=== PATIENT | male | born 1960 | race African-American/Black ===

== ENCOUNTER 2016-11-01 18:50 | Inpatient (IN) | payer MEDICAID ==
[~2016-11-01] VITALS: Ht 177.8 cm; Wt 127.3 kg
[~2016-11-01 18:50] MED LIST: ASPI81CH43 GT; FUR20T PO; LISI-646 PO; MET25T PO; POTA20TA53 PO; SPIR25TA88 PO
[2016-11-01 21:24] LABS: Basophils # (auto) 0.1 uL; Basophils % (auto) 0.7 % (0.0-2.0); Eosinophils # (auto) 0.2 uL; Eosinophils % (auto) 1.8 % (0.0-7.0); Hematocrit 45.2 % (41.0-53.0); Hemoglobin 14.1 g/dL (13.5-17.5); Lymphocytes # (auto) 0.8 uL; Lymphocytes % (auto) 8.4 % (10.0-50.0); Mean Corpuscular Hemoglobin 29.7 pg (28.0-32.0); Mean Corpuscular Hgb Conc. 31.2 g/dL (32.0-36.0); Mean Corpuscular Volume 94.9 fL (80.0-100.0); Mean Platelet Volume 8.7 fL (7.4-10.4); Monocytes # (auto) 0.6 uL; Neutrophils # (auto) 7.3 uL; Neutrophils % (auto) 82.1 % (37.0-80.0); Platelet Count (auto) 334 10^3/uL (140-450); Red Cell Distribution Width 15.3 % (11.6-16.0); SUSPECT VIEW TRANSMISSION; White Blood Cell 8.9 10^3/uL (4.4-10.8)
[2016-11-01 21:36] LABS: Albumin 3.8 g/dL (3.4-5.0); Alkaline Phosphatase 161 U/L (45-117); Anion Gap 8 (5-15); Aspartate Aminotransferase 52 U/L (15-37); BUN/Creatinine Ratio 17.9; Bilirubin, Total 2.6 mg/dL (0.2-1.0); Blood Urea Nitrogen 15 mg/dL (7-18); Calcium 9.3 mg/dL (8.5-10.1); Carbon Dioxide 30 mmol/L (21-32); Chloride 102 mmol/L (98-107); GFR African American 121 mL/min; GFR Non-African American 100 mL/min; Glucose 66 mg/dL (74-106); Sodium 140 mmol/L (136-145); Total Protein 7.9 g/dL (6.4-8.2)
[2016-11-01 21:43] LABS: Partial Thromboplastin Time 26.8 sec (22.64-33.71)
[2016-11-01 21:44] LABS: INR 1.21 (0.9-1.15); Prothrombin Time 12.5 sec (9.37-12.3)
[2016-11-01 22:03] LABS: B-Type Natriuretic Peptide 530.41 pg/mL (0-100); Temperature: 21.9 C (20.0-25.0)
[2016-11-02 00:27] LABS: Urine Blood Negative /uL (Negative); Urine Ca Oxalate Crystal MANY (None Seen); Urine Color Yellow (Yellow); Urine Glucose Normal (Normal); Urine Hyaline Cast FEW /lpf (0 - 2); Urine Ketone Negative (Negative); Urine Mucus FEW (None Seen); Urine Nitrite Negative (Negative); Urine RBC 3 /hpf (0 - 3); Urine Urobilinogen >12.0 mg/dL (Negative)
[2016-11-02 00:39] LABS: Urine Bilirubin POSITIVE (Negative)
[2016-11-02] MEDS ORDERED: FUROSEMIDE 20 MG/2 ML VIAL IV ONE ×2 (03:30→06:15)
[2016-11-02] MEDS ORDERED: ONDANSETRON HCL 4 MG/2 ML VIAL IV ONE (04:30)
[2016-11-02] MEDS ORDERED: MORPHINE SULF INJ 2 MG/ML SYRINGE 1ML IV ONE (04:30)
[2016-11-02] MEDS ORDERED: IOHEXOL 350 MG/ML 100ML IJ ONE (05:24)
[2016-11-02] MEDS ORDERED: HYDROcodone-ACET 5/325MG TAB PO PRN (06:15)
[2016-11-02] MEDS ORDERED: MORPHINE SULF INJ 2 MG/ML SYRINGE 1ML IV PRN (06:15)
[2016-11-02] MEDS ORDERED: ONDANSETRON HCL 4 MG/2 ML VIAL IV PRN (06:15)
[2016-11-02] MEDS ORDERED: ALBUTEROL SULF 2.5 MG/0.5ML(0.5%) NEB SOLN NEB PRN (06:15)
[2016-11-02] MEDS ORDERED: ENOXAPARIN SOD 100 MG/1 ML SYRINGE SC ONE (06:15)
[2016-11-02] MEDS ORDERED: ACETAMINOPHEN 325 MG TAB PO PRN (06:15)
[2016-11-02] MEDS ORDERED: NITROGLYCERIN 0.4 MG SL TAB SL PRN (06:15)
[2016-11-02 09:00] VITALS: BP 161/120
[2016-11-02 09:20] VITALS: BP 161/120
[2016-11-02 09:39] VITALS: BP 150/90
[2016-11-02] MEDS ORDERED: METOPROLOL TARTRATE 25 MG TAB PO SCH (10:00)
[2016-11-02] MEDS ORDERED: ENOXAPARIN SOD 100 MG/1 ML SYRINGE SC SCH (10:00)
[2016-11-02] MEDS: SPIRONOLACTONE 25 MG TAB PO SCH (10:05)
[2016-11-02] MEDS: POTASSIUM CHL 10 Meq TABLET PO SCH ×2 (10:05→21:12)
[2016-11-02] MEDS: ASPirin 81 mg TAB PO SCH (10:05)
[2016-11-02] MEDS: FAMOTIDINE 20 MG TAB PO SCH ×2 (10:06→21:12)
[2016-11-02] MEDS: LISINOPRIL 10 MG TAB PO SCH (10:15)
[2016-11-02 13:03] VITALS: BP 135/110
[2016-11-02] MEDS: IPRATROPIUM BROM 0.5 MG/2.5ML INH SOL NEB SCH ×3 (14:00→22:32)
[2016-11-02] MEDS: ALBUTEROL SULF 2.5 MG/0.5ML(0.5%) NEB SOLN NEB SCH ×3 (14:00→22:32)
[2016-11-02 15:00] LABS: INR 1.26 (0.9-1.15)
[2016-11-02] MEDS: LEVOFLOXACIN 500 MG TAB PO SCH (15:25)
[2016-11-02 17:00] VITALS: BP 153/93
[2016-11-02] MEDS ORDERED: WARFARIN SODIUM 10 MG TAB PO ONE (17:00)
[2016-11-02] MEDS: FUROSEMIDE 40 MG TAB PO SCH (17:32)
[2016-11-02] MEDS: ENOXAPARIN SOD 100 MG/1 ML SYRINGE SC SCH (21:10)
[2016-11-02] MEDS: CARVEDILOL 3.125 MG TAB PO SCH (21:11)
[2016-11-02 21:15] VITALS: BP 127/76
[2016-11-03 05:36] VITALS: BP 135/77
[2016-11-03] MEDS: FUROSEMIDE 40 MG TAB PO SCH ×2 (06:12→17:13)
[2016-11-03] MEDS: IPRATROPIUM BROM 0.5 MG/2.5ML INH SOL NEB SCH ×4 (07:12→18:53)
[2016-11-03] MEDS: ALBUTEROL SULF 2.5 MG/0.5ML(0.5%) NEB SOLN NEB SCH ×4 (07:12→18:53)
[2016-11-03 08:07] LABS: Basophils # (auto) 0 uL; Basophils % (auto) 0.3 % (0.0-2.0); Eosinophils # (auto) 0.2 uL; Eosinophils % (auto) 3.4 % (0.0-7.0); Hematocrit 37.6 % (41.0-53.0); Lymphocytes # (auto) 0.8 uL; Lymphocytes % (auto) 14.7 % (10.0-50.0); Mean Corpuscular Hgb Conc. 31.8 g/dL (32.0-36.0); Mean Corpuscular Volume 94.2 fL (80.0-100.0); Mean Platelet Volume 8.3 fL (7.4-10.4); Monocytes # (auto) 0.6 uL; Monocytes % (auto) 12.6 % (0.0-12.0); Neutrophils # (auto) 3.5 uL; Platelet Count (auto) 303 10^3/uL (140-450); Red Cell Distribution Width 15.4 % (11.6-16.0); SUSPECT VIEW TRANSMISSION; White Blood Cell 5.1 10^3/uL (4.4-10.8)
[2016-11-03 08:15] LABS: Albumin 3.4 g/dL (3.4-5.0); BUN/Creatinine Ratio 17.3; Bilirubin, Total 1.3 mg/dL (0.2-1.0); Calcium 8.9 mg/dL (8.5-10.1); Potassium 4.1 mmol/L (3.5-5.1); Total Protein 6.6 g/dL (6.4-8.2)
[2016-11-03 08:36] VITALS: BP 140/79
[2016-11-03] MEDS ORDERED: ENOXAPARIN SOD 40 MG/0.4 ML SYRINGE SC SCH (10:00)
[2016-11-03] MEDS: ENOXAPARIN SOD 100 MG/1 ML SYRINGE SC SCH ×2 (10:33→22:06)
[2016-11-03] MEDS: ASPirin 81 mg TAB PO SCH (10:34)
[2016-11-03] MEDS: POTASSIUM CHL 10 Meq TABLET PO SCH ×2 (10:34→22:06)
[2016-11-03] MEDS: LISINOPRIL 10 MG TAB PO SCH (10:35)
[2016-11-03] MEDS: SPIRONOLACTONE 25 MG TAB PO SCH (10:35)
[2016-11-03] MEDS: LEVOFLOXACIN 500 MG TAB PO SCH (10:35)
[2016-11-03] MEDS: CARVEDILOL 3.125 MG TAB PO SCH ×2 (10:35→22:08)
[2016-11-03] MEDS: FAMOTIDINE 20 MG TAB PO SCH ×2 (10:35→22:07)
[2016-11-03 13:00] VITALS: BP 151/77
[2016-11-03 16:46] VITALS: BP 139/85
[2016-11-03] MEDS ORDERED: WARFARIN SODIUM 2.5 MG TAB PO ONE (17:00)
[2016-11-03 22:00] VITALS: BP 127/69
[2016-11-04 05:00] VITALS: BP 109/69
[2016-11-04 06:15] LABS: Basophils # (auto) 0 uL; Basophils % (auto) 0.4 % (0.0-2.0); Eosinophils # (auto) 0.2 uL; Eosinophils % (auto) 4.3 % (0.0-7.0); Hematocrit 37.2 % (41.0-53.0); Hemoglobin 11.6 g/dL (13.5-17.5); Lymphocytes # (auto) 1.2 uL; Mean Corpuscular Hgb Conc. 31.2 g/dL (32.0-36.0); Mean Corpuscular Volume 96.3 fL (80.0-100.0); Mean Platelet Volume 8.2 fL (7.4-10.4); Monocytes # (auto) 0.7 uL; Monocytes % (auto) 12.8 % (0.0-12.0); Neutrophils # (auto) 3.3 uL; Neutrophils % (auto) 60.5 % (37.0-80.0); Platelet Count (auto) 306 10^3/uL (140-450); Red Cell Distribution Width 15.9 % (11.6-16.0); White Blood Cell 5.5 10^3/uL (4.4-10.8)
[2016-11-04 06:17] LABS: Partial Thromboplastin Time 29.8 sec (22.64-33.71)
[2016-11-04 06:28] LABS: BUN/Creatinine Ratio 19.2; Calcium 8.9 mg/dL (8.5-10.1); Potassium 3.8 mmol/L (3.5-5.1)
[2016-11-04 06:36] LABS: INR 1.34 (0.9-1.15); Prothrombin Time 13.8 sec (9.37-12.3)
[2016-11-04] MEDS: FUROSEMIDE 40 MG TAB PO SCH ×2 (06:44→17:59)
[2016-11-04] MEDS: ALBUTEROL SULF 2.5 MG/0.5ML(0.5%) NEB SOLN NEB SCH ×4 (06:45→20:15)
[2016-11-04] MEDS: IPRATROPIUM BROM 0.5 MG/2.5ML INH SOL NEB SCH ×4 (06:45→20:15)
[2016-11-04 09:01] VITALS: BP 126/68
[2016-11-04] MEDS: ENOXAPARIN SOD 100 MG/1 ML SYRINGE SC SCH ×2 (11:22→21:31)
[2016-11-04] MEDS: LEVOFLOXACIN 500 MG TAB PO SCH (11:23)
[2016-11-04] MEDS: POTASSIUM CHL 10 Meq TABLET PO SCH ×2 (11:23→21:31)
[2016-11-04] MEDS: ASPirin 81 mg TAB PO SCH (11:23)
[2016-11-04] MEDS: SPIRONOLACTONE 25 MG TAB PO SCH (11:23)
[2016-11-04] MEDS: LISINOPRIL 10 MG TAB PO SCH (11:24)
[2016-11-04] MEDS: FAMOTIDINE 20 MG TAB PO SCH ×2 (11:25→21:32)
[2016-11-04] MEDS: CARVEDILOL 3.125 MG TAB PO SCH ×2 (11:25→21:32)
[2016-11-04 13:29] VITALS: BP 133/94
[2016-11-04 17:00] VITALS: BP 134/94
[2016-11-04] MEDS ORDERED: WARFARIN SODIUM 2.5 MG TAB PO ONE (17:00)
[2016-11-04 17:16] LABS: INR 1.38 (0.9-1.15); Prothrombin Time 14.2 sec (9.37-12.3)
[2016-11-04 22:00] VITALS: BP 122/80
[2016-11-05 05:00] VITALS: BP 121/89
[2016-11-05] MEDS: IPRATROPIUM BROM 0.5 MG/2.5ML INH SOL NEB SCH ×4 (06:00→19:23)
[2016-11-05] MEDS: ALBUTEROL SULF 2.5 MG/0.5ML(0.5%) NEB SOLN NEB SCH ×4 (06:00→19:23)
[2016-11-05] MEDS: FUROSEMIDE 40 MG TAB PO SCH ×2 (06:04→17:55)
[2016-11-05 08:12] VITALS: BP 125/83
[2016-11-05] MEDS: FAMOTIDINE 20 MG TAB PO SCH ×2 (10:18→21:26)
[2016-11-05] MEDS: ENOXAPARIN SOD 100 MG/1 ML SYRINGE SC SCH ×2 (10:18→21:27)
[2016-11-05] MEDS: LEVOFLOXACIN 500 MG TAB PO SCH (10:18)
[2016-11-05] MEDS: LISINOPRIL 10 MG TAB PO SCH (10:19)
[2016-11-05] MEDS: POTASSIUM CHL 10 Meq TABLET PO SCH ×2 (10:20→21:26)
[2016-11-05] MEDS: ASPirin 81 mg TAB PO SCH (10:20)
[2016-11-05] MEDS: CARVEDILOL 3.125 MG TAB PO SCH ×2 (10:20→21:26)
[2016-11-05] MEDS: SPIRONOLACTONE 25 MG TAB PO SCH (10:21)
[2016-11-05 11:26] LABS: Partial Thromboplastin Time 32.4 sec (22.64-33.71)
[2016-11-05 11:29] LABS: INR 1.54 (0.9-1.15); Prothrombin Time 15.9 sec (9.37-12.3)
[2016-11-05 12:52] VITALS: BP 117/82
[2016-11-05] MEDS ORDERED: WARFARIN SODIUM 2.5 MG TAB PO ONE (17:00)
[2016-11-05 17:14] VITALS: BP 128/77
[2016-11-05 22:00] VITALS: BP 118/68
[2016-11-06 05:00] VITALS: BP 143/96
[2016-11-06] MEDS: FUROSEMIDE 40 MG TAB PO SCH ×2 (05:12→18:08)
[2016-11-06] MEDS: ALBUTEROL SULF 2.5 MG/0.5ML(0.5%) NEB SOLN NEB SCH ×4 (06:11→19:23)
[2016-11-06] MEDS: IPRATROPIUM BROM 0.5 MG/2.5ML INH SOL NEB SCH ×4 (06:11→19:23)
[2016-11-06 06:13] LABS: INR 1.73 (0.9-1.15); Partial Thromboplastin Time 35.2 sec (22.64-33.71); Prothrombin Time 17.8 sec (9.37-12.3)
[2016-11-06 08:57] VITALS: BP 123/74
[2016-11-06] MEDS: ASPirin 81 mg TAB PO SCH (09:59)
[2016-11-06] MEDS: CARVEDILOL 3.125 MG TAB PO SCH ×2 (10:00→21:25)
[2016-11-06] MEDS: POTASSIUM CHL 10 Meq TABLET PO SCH ×2 (10:00→21:23)
[2016-11-06] MEDS: SPIRONOLACTONE 25 MG TAB PO SCH (10:01)
[2016-11-06] MEDS: LEVOFLOXACIN 500 MG TAB PO SCH (10:01)
[2016-11-06] MEDS: FAMOTIDINE 20 MG TAB PO SCH ×2 (10:01→21:24)
[2016-11-06] MEDS: ENOXAPARIN SOD 100 MG/1 ML SYRINGE SC SCH ×2 (10:01→21:23)
[2016-11-06] MEDS: LISINOPRIL 10 MG TAB PO SCH (10:01)
[2016-11-06 12:41] VITALS: BP 150/96
[2016-11-06 16:40] VITALS: BP 128/60
[2016-11-06] MEDS ORDERED: WARFARIN SODIUM 2.5 MG TAB PO ONE (17:00)
[2016-11-06 22:00] VITALS: BP 135/106
[2016-11-07 05:00] VITALS: BP 115/80
[2016-11-07] MEDS: FUROSEMIDE 40 MG TAB PO SCH ×2 (05:11→18:20)
[2016-11-07] MEDS: ALBUTEROL SULF 2.5 MG/0.5ML(0.5%) NEB SOLN NEB SCH ×4 (06:11→20:02)
[2016-11-07] MEDS: IPRATROPIUM BROM 0.5 MG/2.5ML INH SOL NEB SCH ×4 (06:11→20:02)
[2016-11-07 06:44] LABS: Partial Thromboplastin Time 36.7 sec (22.64-33.71)
[2016-11-07 06:54] LABS: Calcium 8.6 mg/dL (8.5-10.1); Potassium 4.1 mmol/L (3.5-5.1)
[2016-11-07 06:55] LABS: INR 2.01 (0.9-1.15); Prothrombin Time 20.7 sec (9.37-12.3)
[2016-11-07 06:58] LABS: BUN/Creatinine Ratio 22.5
[2016-11-07 09:26] VITALS: BP 155/98
[2016-11-07] MEDS: ENOXAPARIN SOD 100 MG/1 ML SYRINGE SC SCH (10:59)
[2016-11-07] MEDS: FAMOTIDINE 20 MG TAB PO SCH (11:00)
[2016-11-07] MEDS: ASPirin 81 mg TAB PO SCH (11:00)
[2016-11-07] MEDS: POTASSIUM CHL 10 Meq TABLET PO SCH (11:00)
[2016-11-07] MEDS: LEVOFLOXACIN 500 MG TAB PO SCH (11:00)
[2016-11-07] MEDS: SPIRONOLACTONE 25 MG TAB PO SCH (11:00)
[2016-11-07] MEDS: CARVEDILOL 3.125 MG TAB PO SCH (11:01)
[2016-11-07] MEDS: LISINOPRIL 10 MG TAB PO SCH (11:01)
[2016-11-07 13:00] VITALS: BP 118/88
[2016-11-07 16:59] VITALS: BP 114/62
[2016-11-07] MEDS ORDERED: WARFARIN SODIUM 2.5 MG TAB PO ONE (17:00)
[2016-11-07 22:00] VITALS: BP 138/85
[2016-11-08] VITALS (7 sets, daily range): BP systolic 124–136; BP diastolic 77–97
[2016-11-08] MEDS: POTASSIUM CHL 10 Meq TABLET PO SCH (00:03)
[2016-11-08] MEDS: FAMOTIDINE 20 MG TAB PO SCH ×3 (00:03→23:04)
[2016-11-08] MEDS: CARVEDILOL 3.125 MG TAB PO SCH (00:03)
[2016-11-08 05:54] LABS: Basophils # (auto) 0 uL; Basophils % (auto) 0.4 % (0.0-2.0); Eosinophils # (auto) 0.1 uL; Eosinophils % (auto) 2.8 % (0.0-7.0); Hematocrit 33.7 % (41.0-53.0); Hemoglobin 10.3 g/dL (13.5-17.5); Lymphocytes # (auto) 0.9 uL; Lymphocytes % (auto) 20.7 % (10.0-50.0); Mean Corpuscular Hemoglobin 29.3 pg (28.0-32.0); Mean Corpuscular Hgb Conc. 30.6 g/dL (32.0-36.0); Mean Corpuscular Volume 95.9 fL (80.0-100.0); Mean Platelet Volume 8.2 fL (7.4-10.4); Monocytes # (auto) 0.8 uL; Monocytes % (auto) 17.6 % (0.0-12.0); Neutrophils # (auto) 2.6 uL; Neutrophils % (auto) 58.5 % (37.0-80.0); Platelet Count (auto) 234 10^3/uL (140-450); Red Cell Distribution Width 14.9 % (11.6-16.0); White Blood Cell 4.5 10^3/uL (4.4-10.8)
[2016-11-08 06:03] LABS: Partial Thromboplastin Time 36.6 sec (22.64-33.71)
[2016-11-08 06:08] LABS: INR 2.07 (0.9-1.15); Prothrombin Time 21.3 sec (9.37-12.3)
[2016-11-08 06:10] LABS: BUN/Creatinine Ratio 25.6; Calcium 8.5 mg/dL (8.5-10.1); Potassium 4.1 mmol/L (3.5-5.1)
[2016-11-08] MEDS: FUROSEMIDE 40 MG TAB PO SCH ×2 (06:14→18:42)
[2016-11-08] MEDS: IPRATROPIUM BROM 0.5 MG/2.5ML INH SOL NEB SCH ×4 (06:35→18:48)
[2016-11-08] MEDS: ALBUTEROL SULF 2.5 MG/0.5ML(0.5%) NEB SOLN NEB SCH ×4 (06:35→18:48)
[2016-11-08] MEDS: LEVOFLOXACIN 500 MG TAB PO SCH (10:00)
[2016-11-08] MEDS ORDERED: ASPI81CH43 PO (11:28)
[2016-11-08] MEDS ORDERED: WARF5TAB PO (11:28)
[2016-11-08] MEDS ORDERED: FUR20T PO (11:28)
[2016-11-08] MEDS ORDERED: SPIR25TA88 PO (11:28)
[2016-11-08] MEDS ORDERED: POTA10TA34 PO (11:28)
[2016-11-08] MEDS ORDERED: LISI10TA6 PO (11:28)
[2016-11-08] MEDS ORDERED: MET25T PO (11:28)
[2016-11-08] MEDS ORDERED: WARFARIN SODIUM 2.5 MG TAB PO ONE (17:00)
[2016-11-08] MEDS: SPIRONOLACTONE 25 MG TAB PO SCH (18:39)
[2016-11-08] MEDS: LISINOPRIL 10 MG TAB PO SCH (18:40)
[2016-11-08] MEDS: POTASSIUM CHLORIDE 8 MEQ TAB PO SCH (23:04)
[2016-11-08] MEDS: METOPROLOL TARTRATE 25 MG TAB PO SCH (23:05)
[2016-11-09 05:00] VITALS: BP 140/93
[2016-11-09] MEDS: FUROSEMIDE 40 MG TAB PO SCH (05:49)
[2016-11-09] MEDS: IPRATROPIUM BROM 0.5 MG/2.5ML INH SOL NEB SCH ×3 (06:29→15:17)
[2016-11-09] MEDS: ALBUTEROL SULF 2.5 MG/0.5ML(0.5%) NEB SOLN NEB SCH ×3 (06:29→15:17)
[2016-11-09 06:41] LABS: Partial Thromboplastin Time 33.8 sec (22.64-33.71)
[2016-11-09 06:49] LABS: INR 1.94 (0.9-1.15)
[2016-11-09 09:00] VITALS: BP 130/82
[2016-11-09] MEDS: SPIRONOLACTONE 25 MG TAB PO SCH (09:45)
[2016-11-09] MEDS: POTASSIUM CHLORIDE 8 MEQ TAB PO SCH (09:45)
[2016-11-09] MEDS: METOPROLOL TARTRATE 25 MG TAB PO SCH (09:45)
[2016-11-09] MEDS: LEVOFLOXACIN 500 MG TAB PO SCH (09:45)
[2016-11-09] MEDS: LISINOPRIL 10 MG TAB PO SCH (09:46)
[2016-11-09] MEDS: FAMOTIDINE 20 MG TAB PO SCH (09:46)
[2016-11-09] MEDS ORDERED: ASPirin-EC 81 mg tab PO SCH (10:00)
[2016-11-09 13:00] VITALS: BP 133/89
[2016-11-09] MEDS ORDERED: APIX5TAB OR (16:42)
[2016-11-09 16:46] VITALS: BP 144/95
[2016-11-09] MEDS ORDERED: WARFARIN SODIUM 2.5 MG TAB PO ONE (17:00)
== END 2016-11-09 18:00 | disposition home or self-care (01) | DRG 134 ==
LOC: ER 18:50 → EDUNIT# 18:50 → TELE 18:51 → TELE-WESTW 11-02 08:30 → WEST WING 11-07 00:20
PROVIDERS: ADMIT Nurse Practitioner; ATTEND Internal Medicine
DX: I26.99 Other pulmonary embolism without acute cor pulmonale (principal); I50.43 Acute on chronic combined systolic (congestive) and diastolic (congestive) heart failure; I42.0 Dilated cardiomyopathy; R18.8 Other ascites; J44.0 Chronic obstructive pulmonary disease with (acute) lower respiratory infection; I42.9 Cardiomyopathy, unspecified; I34.0 Nonrheumatic mitral (valve) insufficiency; K40.90 Unilateral inguinal hernia, without obstruction or gangrene, not specified as recurrent; N39.0 Urinary tract infection, site not specified; I11.0 Hypertensive heart disease with heart failure; I70.0 Atherosclerosis of aorta; J20.9 Acute bronchitis, unspecified; Z75.1 Person awaiting admission to adequate facility elsewhere; Z91.19 Patient's noncompliance with other medical treatment and regimen; Z79.82 Long term (current) use of aspirin; Z79.899 Other long term (current) drug therapy; Z59.0 Homelessness; Z82.5 Family history of asthma and other chronic lower respiratory diseases; Z91.14 Patient's other noncompliance with medication regimen; E66.01 Morbid (severe) obesity due to excess calories; Z68.41 Body mass index [BMI] 40.0-44.9, adult
CPT/HCPCS: 36415; 36600; 71010; 71275; 80048; 80053; 80320; 81001; 82805; 83735; 83880; 84484; 85025; 85049; 85379; 85610; 85730; 93005; 93970; 94640; G0434; J2405

== ENCOUNTER 2016-12-13 19:29 | Inpatient (IN) | payer MEDICAID ==
[~2016-12-13] VITALS: Ht 175.3 cm; Wt 111.6 kg
[~2016-12-13 19:29] MED LIST changes: +APIX5TAB OR; -ASPI81CH43 GT; +ASPI81CH43 PO; -LISI-646 PO; +LISI10TA6 PO; +POTA10TA34 PO; -POTA20TA53 PO; -SPIR25TA88 PO
[2016-12-14] MEDS ORDERED: FUROSEMIDE 20 MG/2 ML VIAL IV ONE (07:15)
[2016-12-14] MEDS ORDERED: ASPirin 81 mg TAB PO ONE (07:15)
[2016-12-14 07:53] LABS: Basophils # (auto) 0 uL; Basophils % (auto) 0.3 % (0.0-2.0); Eosinophils # (auto) 0.1 uL; Hematocrit 36.7 % (41.0-53.0); Hemoglobin 11.6 g/dL (13.5-17.5); Lymphocytes # (auto) 0.7 uL; Lymphocytes % (auto) 10.8 % (10.0-50.0); Mean Corpuscular Hemoglobin 29.8 pg (28.0-32.0); Mean Corpuscular Hgb Conc. 31.7 g/dL (32.0-36.0); Mean Platelet Volume 7.3 fL (7.4-10.4); Monocytes # (auto) 0.9 uL; Monocytes % (auto) 14.1 % (0.0-12.0); Neutrophils # (auto) 4.4 uL; Neutrophils % (auto) 72.8 % (37.0-80.0); Platelet Count (auto) 336 10^3/uL (140-450); Red Cell Distribution Width 14.8 % (11.6-16.0); White Blood Cell 6.1 10^3/uL (4.4-10.8)
[2016-12-14 08:23] LABS: Albumin 3.4 g/dL (3.4-5.0); BUN/Creatinine Ratio 20.8; Bilirubin, Total 1.3 mg/dL (0.2-1.0); Calcium 8.7 mg/dL (8.5-10.1); Magnesium 2.2 mg/dL (1.6-2.6); Potassium 4.2 mmol/L (3.5-5.1); Total Protein 7.1 g/dL (6.4-8.2)
[2016-12-14 09:00] LABS: B-Type Natriuretic Peptide 572.73 pg/mL (0-100)
[2016-12-14 09:57] LABS: Partial Thromboplastin Time 26.3 sec (22.64-33.71)
[2016-12-14 10:00] LABS: INR 1.17 (0.9-1.15)
[2016-12-14 10:15] LABS: Urine Bilirubin Negative (Negative); Urine Blood TRACE /uL (Negative); Urine Color Yellow (Yellow); Urine Glucose Normal (Normal); Urine Ketone Negative (Negative); Urine Nitrite Negative (Negative); Urine RBC 2 /hpf (0 - 3); Urine Urobilinogen Normal (Negative); Urine pH 6.5 (5.0-8.0)
[2016-12-14] MEDS ORDERED: ENOXAPARIN SOD 120 MG/0.8 ML SYRINGE SC ONE (10:15)
[2016-12-14] MEDS ORDERED: PROMETHAZINE HCL 25 MG/ML 1ML IV PRN (10:45)
[2016-12-14] MEDS ORDERED: TEMAZEPAM 15 MG CAP PO PRN (10:45)
[2016-12-14] MEDS ORDERED: HYDROcodone-ACET 5/325MG TAB PO PRN (10:45)
[2016-12-14] MEDS ORDERED: MORPHINE SULF INJ 2 MG/ML SYRINGE 1ML IV PRN ×2 (10:45)
[2016-12-14] MEDS ORDERED: LACTULOSE 20Gm/30ML SOLN PO PRN (10:45)
[2016-12-14] MEDS ORDERED: NITROGLYCERIN 0.4 MG SL TAB SL PRN (10:45)
[2016-12-14] MEDS ORDERED: OSELTAMIVIR 75 MG CAP PO ONE (10:45)
[2016-12-14] MEDS ORDERED: LORazepam 0.5 MG TAB PO PRN (10:45)
[2016-12-14] MEDS ORDERED: ACETAMINOPHEN 500 MG TAB PO PRN (10:45)
[2016-12-14] MEDS ORDERED: LISINOPRIL 10 MG TAB PO ONE (11:00)
[2016-12-14] MEDS ORDERED: NITROGLYCERIN 0.2MG/HR TOPICAL PATCH TD ONE (11:00)
[2016-12-14] MEDS: POTASSIUM CHL 20 Meq TABLET PO SCH (11:13)
[2016-12-14] MEDS ORDERED: APIXABAN 5 MG TAB PO ONE (11:15)
[2016-12-14] MEDS: ALBUTEROL SULF 2.5 MG/0.5ML(0.5%) NEB SOLN NEB SCH ×2 (12:00→18:43)
[2016-12-14] MEDS: IPRATROPIUM BROM 0.5 MG/2.5ML INH SOL NEB SCH ×2 (12:00→18:43)
[2016-12-14 14:06] VITALS: BP 157/86
[2016-12-14 14:31] VITALS: BP 157/86
[2016-12-14 20:00] VITALS: BP 153/86
[2016-12-14 22:00] VITALS: BP 153/86
[2016-12-14] MEDS ORDERED: OSELTAMIVIR 75 MG CAP PO SCH ×2 (22:00)
[2016-12-14] MEDS ORDERED: POTASSIUM CHLORIDE 8 MEQ PO SCH (22:00)
[2016-12-14] MEDS: CARVEDILOL 3.125 MG TAB PO SCH (22:20)
[2016-12-14] MEDS: APIXABAN 5 MG TAB PO SCH (22:20)
[2016-12-14 23:08] VITALS: BP 153/86
[2016-12-15] MEDS: ALBUTEROL SULF 2.5 MG/0.5ML(0.5%) NEB SOLN NEB SCH ×3 (00:14→13:57)
[2016-12-15] MEDS: IPRATROPIUM BROM 0.5 MG/2.5ML INH SOL NEB SCH ×4 (00:14→19:07)
[2016-12-15 05:00] VITALS: BP 150/97
[2016-12-15 06:26] LABS: Basophils # (auto) 0 uL; Basophils % (auto) 0.1 % (0.0-2.0); Eosinophils # (auto) 0.1 uL; Eosinophils % (auto) 2.1 % (0.0-7.0); Hematocrit 35.7 % (41.0-53.0); Hemoglobin 11.3 g/dL (13.5-17.5); Lymphocytes # (auto) 0.7 uL; Lymphocytes % (auto) 10.4 % (10.0-50.0); Mean Corpuscular Hemoglobin 29.7 pg (28.0-32.0); Mean Corpuscular Hgb Conc. 31.6 g/dL (32.0-36.0); Mean Corpuscular Volume 94.2 fL (80.0-100.0); Mean Platelet Volume 7.7 fL (7.4-10.4); Monocytes # (auto) 0.7 uL; Monocytes % (auto) 10.6 % (0.0-12.0); Neutrophils # (auto) 5.3 uL; Neutrophils % (auto) 76.8 % (37.0-80.0); Platelet Count (auto) 330 10^3/uL (140-450); Red Cell Distribution Width 14.4 % (11.6-16.0); White Blood Cell 6.9 10^3/uL (4.4-10.8)
[2016-12-15 06:57] LABS: Albumin 3.1 g/dL (3.4-5.0); Calcium 8.5 mg/dL (8.5-10.1)
[2016-12-15 06:59] LABS: BUN/Creatinine Ratio 19.5
[2016-12-15 07:02] LABS: Bilirubin, Total 1.4 mg/dL (0.2-1.0)
[2016-12-15 07:03] LABS: Total Protein 6.9 g/dL (6.4-8.2)
[2016-12-15 07:21] LABS: B-Type Natriuretic Peptide 541.64 pg/mL (0-100)
[2016-12-15 07:59] VITALS: BP 152/96
[2016-12-15] MEDS ORDERED: INFLUENZA QUAD 2016-2017 0.5 ML SYRG IM ONE (10:00)
[2016-12-15] MEDS: NITROGLYCERIN 0.2MG/HR TOPICAL PATCH TD SCH (10:00)
[2016-12-15] MEDS ORDERED: PNEUMOCOCCAL VACC POLYS 25 MCG/0.5 ML VIAL IM ONE (10:00)
[2016-12-15] MEDS ORDERED: FUROSEMIDE 40 MG/4 ML VIAL IV SCH ×2 (10:00→18:30)
[2016-12-15] MEDS: ASPirin 81 mg TAB PO SCH (11:59)
[2016-12-15] MEDS: CARVEDILOL 3.125 MG TAB PO SCH ×2 (12:00→22:00)
[2016-12-15] MEDS: POTASSIUM CHL 20 Meq TABLET PO SCH (12:00)
[2016-12-15] MEDS: APIXABAN 5 MG TAB PO SCH ×2 (12:00→22:00)
[2016-12-15] MEDS: LISINOPRIL 10 MG TAB PO SCH (12:01)
[2016-12-15 12:15] VITALS: BP 135/93
[2016-12-15 17:00] VITALS: BP 122/95
[2016-12-15] MEDS: SPIRONOLACTONE 25 MG TAB PO SCH (18:46)
[2016-12-15] MEDS: FUROSEMIDE 100 MG/10ML VIAL IV SCH (18:47)
[2016-12-15] MEDS: ALBUTEROL SULF 2.5 MG/0.5ML(0.5%) NEB SOLN NEB PRN (19:07)
[2016-12-15 22:00] VITALS: BP 129/92
[2016-12-16] MEDS: IPRATROPIUM BROM 0.5 MG/2.5ML INH SOL NEB SCH ×4 (00:34→19:17)
[2016-12-16 05:49] VITALS: BP 135/67
[2016-12-16] MEDS: FUROSEMIDE 100 MG/10ML VIAL IV SCH ×2 (06:00→17:36)
[2016-12-16] MEDS: SPIRONOLACTONE 25 MG TAB PO SCH ×2 (06:00→17:35)
[2016-12-16 06:03] LABS: BUN/Creatinine Ratio 20.3; Calcium 8.7 mg/dL (8.5-10.1); Potassium 3.7 mmol/L (3.5-5.1)
[2016-12-16] MEDS: ALBUTEROL SULF 2.5 MG/0.5ML(0.5%) NEB SOLN NEB PRN (06:53)
[2016-12-16 08:10] VITALS: BP 126/89
[2016-12-16] MEDS: ASPirin 81 mg TAB PO SCH (09:15)
[2016-12-16] MEDS: APIXABAN 5 MG TAB PO SCH ×2 (09:16→22:00)
[2016-12-16] MEDS: CARVEDILOL 3.125 MG TAB PO SCH ×2 (09:16→22:00)
[2016-12-16] MEDS: LISINOPRIL 10 MG TAB PO SCH (09:17)
[2016-12-16] MEDS: POTASSIUM CHL 20 Meq TABLET PO SCH (09:17)
[2016-12-16] MEDS ORDERED: METOLAZONE 5 MG TAB PO SCH (10:00)
[2016-12-16] MEDS: NITROGLYCERIN 0.2MG/HR TOPICAL PATCH TD SCH (10:00)
[2016-12-16 11:37] VITALS: BP 129/84
[2016-12-16 17:00] VITALS: BP 140/105
[2016-12-16] MEDS: ALBUTEROL SULF 2.5 MG/0.5ML(0.5%) NEB SOLN NEB SCH (19:17)
[2016-12-16 22:00] VITALS: BP 110/54
[2016-12-17] MEDS: IPRATROPIUM BROM 0.5 MG/2.5ML INH SOL NEB SCH ×4 (01:00→19:05)
[2016-12-17] MEDS: ALBUTEROL SULF 2.5 MG/0.5ML(0.5%) NEB SOLN NEB SCH ×4 (01:00→19:05)
[2016-12-17 05:00] VITALS: BP 100/66
[2016-12-17] MEDS: SPIRONOLACTONE 25 MG TAB PO SCH ×2 (05:46→18:16)
[2016-12-17] MEDS: FUROSEMIDE 100 MG/10ML VIAL IV SCH ×2 (05:46→18:00)
[2016-12-17 06:06] LABS: Calcium 8.6 mg/dL (8.5-10.1); Potassium 4.2 mmol/L (3.5-5.1)
[2016-12-17 09:00] VITALS: BP 111/81
[2016-12-17] MEDS: NITROGLYCERIN 0.2MG/HR TOPICAL PATCH TD SCH (10:00)
[2016-12-17] MEDS: POTASSIUM CHL 20 Meq TABLET PO SCH (10:00)
[2016-12-17 10:54] LABS: Basophils # (auto) 0 uL; Basophils % (auto) 0.6 % (0.0-2.0); Eosinophils # (auto) 0.2 uL; Eosinophils % (auto) 3.4 % (0.0-7.0); Hematocrit 37.3 % (41.0-53.0); Hemoglobin 11.9 g/dL (13.5-17.5); Lymphocytes # (auto) 0.6 uL; Lymphocytes % (auto) 10.8 % (10.0-50.0); Mean Corpuscular Hemoglobin 29.6 pg (28.0-32.0); Mean Corpuscular Hgb Conc. 31.8 g/dL (32.0-36.0); Mean Corpuscular Volume 93.1 fL (80.0-100.0); Mean Platelet Volume 7.5 fL (7.4-10.4); Monocytes # (auto) 0.6 uL; Neutrophils # (auto) 3.8 uL; Neutrophils % (auto) 73.2 % (37.0-80.0); Platelet Count (auto) 339 10^3/uL (140-450); Red Cell Distribution Width 14.6 % (11.6-16.0); White Blood Cell 5.2 10^3/uL (4.4-10.8)
[2016-12-17] MEDS: ASPirin 81 mg TAB PO SCH (11:07)
[2016-12-17] MEDS: CARVEDILOL 3.125 MG TAB PO SCH ×2 (11:08→21:36)
[2016-12-17] MEDS: ENOXAPARIN SOD 100 MG/1 ML SYRINGE SC SCH ×2 (11:09→21:36)
[2016-12-17] MEDS: LISINOPRIL 10 MG TAB PO SCH (11:09)
[2016-12-17 13:00] VITALS: BP 116/68
[2016-12-17 17:00] VITALS: BP 126/74
[2016-12-17] MEDS ORDERED: FUROSEMIDE 40 MG TAB PO ONE (19:00)
[2016-12-17 21:41] VITALS: BP 115/78
[2016-12-18 01:00] VITALS: BP 115/78
[2016-12-18 05:15] VITALS: BP 109/62
[2016-12-18] MEDS: FUROSEMIDE 100 MG/10ML VIAL IV SCH ×2 (06:00→18:02)
[2016-12-18] MEDS: IPRATROPIUM BROM 0.5 MG/2.5ML INH SOL NEB SCH ×4 (06:19→20:09)
[2016-12-18] MEDS: ALBUTEROL SULF 2.5 MG/0.5ML(0.5%) NEB SOLN NEB SCH ×4 (06:19→20:09)
[2016-12-18] MEDS: SPIRONOLACTONE 25 MG TAB PO SCH ×2 (06:36→18:02)
[2016-12-18 09:00] VITALS: BP 116/77
[2016-12-18] MEDS: POTASSIUM CHL 20 Meq TABLET PO SCH (10:34)
[2016-12-18] MEDS: CARVEDILOL 3.125 MG TAB PO SCH ×2 (10:35→21:50)
[2016-12-18] MEDS: ASPirin 81 mg TAB PO SCH (10:36)
[2016-12-18] MEDS: LISINOPRIL 10 MG TAB PO SCH (10:36)
[2016-12-18] MEDS: ENOXAPARIN SOD 100 MG/1 ML SYRINGE SC SCH ×2 (10:38→21:56)
[2016-12-18] MEDS: NITROGLYCERIN 0.2MG/HR TOPICAL PATCH TD SCH (10:38)
[2016-12-18] MEDS ORDERED: PANTOPRAZOLE 40 MG TAB PO ONE (11:15)
[2016-12-18 13:00] VITALS: BP 121/69
[2016-12-18 17:00] VITALS: BP 118/77
[2016-12-18 21:50] VITALS: BP 110/53
[2016-12-19] MEDS: IPRATROPIUM BROM 0.5 MG/2.5ML INH SOL NEB SCH ×3 (01:04→12:00)
[2016-12-19] MEDS: ALBUTEROL SULF 2.5 MG/0.5ML(0.5%) NEB SOLN NEB SCH ×3 (01:04→12:00)
[2016-12-19 04:56] VITALS: BP 111/57
[2016-12-19] MEDS: FUROSEMIDE 100 MG/10ML VIAL IV SCH (06:00)
[2016-12-19] MEDS: SPIRONOLACTONE 25 MG TAB PO SCH (06:00)
[2016-12-19 07:18] LABS: Potassium 3.7 mmol/L (3.5-5.1)
[2016-12-19 07:26] LABS: BUN/Creatinine Ratio 20.7; Calcium 8.6 mg/dL (8.5-10.1)
[2016-12-19 08:44] VITALS: BP 122/76
[2016-12-19] MEDS: POTASSIUM CHL 20 Meq TABLET PO SCH (09:41)
[2016-12-19] MEDS: ASPirin 81 mg TAB PO SCH (09:42)
[2016-12-19] MEDS: CARVEDILOL 3.125 MG TAB PO SCH (09:42)
[2016-12-19] MEDS: LISINOPRIL 10 MG TAB PO SCH (09:42)
[2016-12-19] MEDS: NITROGLYCERIN 0.2MG/HR TOPICAL PATCH TD SCH (09:45)
[2016-12-19] MEDS: ENOXAPARIN SOD 100 MG/1 ML SYRINGE SC SCH (09:45)
[2016-12-19] MEDS ORDERED: PANTOPRAZOLE 40 MG TAB PO SCH (10:00)
[2016-12-19 10:40] VITALS: BP 122/76
[2016-12-19 12:41] VITALS: BP 120/70
== END 2016-12-19 14:05 | disposition left against medical advice (07) | DRG 194 ==
LOC: ER 19:35 → TELE 19:36 → TELE-E-ADS 12-14 12:37 → TELE-CENTR 12-14 13:55
PROVIDERS: ADMIT Internal Medicine; ATTEND Family Medicine
PROC: 5A09357 Assistance with Respiratory Ventilation, Less than 24 Consecutive Hours, Continuous Positive Airway Pressure (ICD-10-PCS; principal; 2016-12-17)
DX: I50.23 Acute on chronic systolic (congestive) heart failure (principal); J96.10 Chronic respiratory failure, unspecified whether with hypoxia or hypercapnia; E87.0 Hyperosmolality and hypernatremia; R18.8 Other ascites; E44.0 Moderate protein-calorie malnutrition; I27.82 Chronic pulmonary embolism; I42.9 Cardiomyopathy, unspecified; K74.60 Unspecified cirrhosis of liver; E66.01 Morbid (severe) obesity due to excess calories; I11.0 Hypertensive heart disease with heart failure; Z53.29 Procedure and treatment not carried out because of patient's decision for other reasons; G47.30 Sleep apnea, unspecified; N50.89 Other specified disorders of the male genital organs; J44.9 Chronic obstructive pulmonary disease, unspecified; Z59.0 Homelessness; Z82.5 Family history of asthma and other chronic lower respiratory diseases; Z68.36 Body mass index [BMI] 36.0-36.9, adult
CPT/HCPCS: 36415; 36600; 71010; 71020; 76700; 80048; 80053; 81001; 82140; 82550; 82805; 82962; 83735; 83880; 84443; 84484; 85025; 85379; 85610; 85730; 87081; 87400; 93005; 94640; 94660; 96372; 96374; 99291

== ENCOUNTER 2017-01-24 20:52 | Inpatient (IN) | payer MEDICAID ==
[~2017-01-24] VITALS: Ht 175.3 cm; Wt 114.2 kg
[2017-01-24 21:22] LABS: Basophils # (auto) 0 uL; Basophils % (auto) 0.5 % (0.0-2.0); Eosinophils # (auto) 0.2 uL; Eosinophils % (auto) 2.5 % (0.0-7.0); Hematocrit 37.6 % (41.0-53.0); Hemoglobin 11.8 g/dL (13.5-17.5); Lymphocytes # (auto) 0.7 uL; Lymphocytes % (auto) 11.1 % (10.0-50.0); Mean Corpuscular Hgb Conc. 31.5 g/dL (32.0-36.0); Mean Corpuscular Volume 92.2 fL (80.0-100.0); Mean Platelet Volume 7.1 fL (7.4-10.4); Monocytes # (auto) 0.9 uL; Neutrophils # (auto) 4.6 uL; Neutrophils % (auto) 71.9 % (37.0-80.0); Platelet Count (auto) 386 10^3/uL (140-450); Red Cell Distribution Width 15.4 % (11.6-16.0); White Blood Cell 6.4 10^3/uL (4.4-10.8)
[2017-01-24 21:37] LABS: Partial Thromboplastin Time 26.7 sec (22.64-33.71)
[2017-01-24 21:40] LABS: INR 1.17 (0.9-1.15); Prothrombin Time 12.6 sec (9.37-12.3)
[2017-01-24 21:48] LABS: BUN/Creatinine Ratio 14.3; Magnesium 2.1 mg/dL (1.6-2.6); Potassium 3.6 mmol/L (3.5-5.1)
[2017-01-24 21:53] LABS: Bilirubin, Total 1.6 mg/dL (0.2-1.0); Total Protein 6.6 g/dL (6.4-8.2)
[2017-01-24 22:16] LABS: B-Type Natriuretic Peptide 381.74 pg/mL (0-100); Temperature: 23.8 C (20.0-25.0)
[2017-01-25 04:47] LABS: Urine Blood Negative /uL (Negative); Urine Ca Oxalate Crystal MANY (None Seen); Urine Color Yellow (Yellow); Urine Glucose Normal (Normal); Urine Ketone Negative (Negative); Urine Mucus FEW (None Seen); Urine Nitrite Negative (Negative); Urine RBC 11 /hpf (0 - 3); Urine Squamous Epithelial Cell FEW /hpf (<5); Urine Urobilinogen >12.0 mg/dL (Negative)
[2017-01-25 04:49] LABS: Urine Bilirubin POSITIVE (Negative)
[2017-01-25] MEDS ORDERED: IPRATROPIUM BROM 0.5 MG/2.5ML INH SOL NEB ONE (05:00)
[2017-01-25] MEDS ORDERED: ALBUTEROL SULF 2.5 MG/0.5ML(0.5%) NEB SOLN NEB ONE (05:00)
[2017-01-25] MEDS ORDERED: FUROSEMIDE 40 MG/4 ML VIAL IV ONE (05:00)
[2017-01-25] MEDS ORDERED: TEMAZEPAM 15 MG CAP PO PRN (08:00)
[2017-01-25] MEDS ORDERED: NITROGLYCERIN 0.4 MG SL TAB SL PRN (08:00)
[2017-01-25] MEDS ORDERED: LACTULOSE 20Gm/30ML SOLN PO PRN (08:00)
[2017-01-25] MEDS ORDERED: ALBUTEROL SULF 2.5 MG/0.5ML(0.5%) NEB SOLN NEB PRN (08:00)
[2017-01-25] MEDS ORDERED: MORPHINE SULF INJ 2 MG/ML SYRINGE 1ML IV PRN ×2 (08:00)
[2017-01-25] MEDS ORDERED: ACETAMINOPHEN 500 MG TAB PO PRN (08:00)
[2017-01-25] MEDS ORDERED: HYDROcodone-ACET 5/325MG TAB PO PRN (08:00)
[2017-01-25] MEDS ORDERED: LORazepam 0.5 MG TAB PO PRN (08:00)
[2017-01-25] MEDS ORDERED: PROCHLORPERAZINE EDISYLATE 5 MG/ML 2ML VIAL IV PRN (08:00)
[2017-01-25] MEDS: FUROSEMIDE 40 MG/4 ML VIAL IV SCH (09:20)
[2017-01-25] MEDS: APIXABAN 5 MG TAB PO SCH ×2 (09:20→22:12)
[2017-01-25] MEDS: ASPirin 81 mg TAB PO SCH (09:20)
[2017-01-25] MEDS: LISINOPRIL 10 MG TAB PO SCH (09:21)
[2017-01-25] MEDS ORDERED: POTASSIUM CHL 20 Meq TABLET PO SCH (10:00)
[2017-01-25] MEDS ORDERED: ASPirin 81 mg TAB PO SCH (10:00)
[2017-01-25] MEDS ORDERED: CARVEDILOL 3.125 MG TAB PO SCH (10:00)
[2017-01-25] MEDS ORDERED: NITROGLYCERIN 0.2MG/HR TOPICAL PATCH TD SCH (10:00)
[2017-01-25] MEDS ORDERED: LABETALOL HCL 5 MG/ML 4ML SYRINGE IV PRN (10:15)
[2017-01-25] MEDS ORDERED: DEXTROSE (50%) 50ML SYRG IV PRN (10:15)
[2017-01-25] MEDS ORDERED: methylPREDNISolone SOD SUCC 40 MG/ML VL IV ONE (10:35)
[2017-01-25] MEDS: CARVEDILOL 12.5 MG TAB PO SCH ×2 (10:39→22:12)
[2017-01-25] MEDS: ACCU-CHEK COMFORT CURVE STRIP VI SCH ×2 (12:26→18:27)
[2017-01-25] MEDS: ALBUTEROL SULF 2.5 MG/0.5ML(0.5%) NEB SOLN NEB SCH ×2 (12:36→20:05)
[2017-01-25] MEDS: IPRATROPIUM BROM 0.5 MG/2.5ML INH SOL NEB SCH ×2 (12:36→20:05)
[2017-01-25 13:43] VITALS: BP 101/68
[2017-01-25 14:00] VITALS: BP 101/68
[2017-01-25] MEDS: SODIUM CHLOR 0.9% PF (SALINE LOCK) 10ML VIAL IV SCH ×2 (14:25→22:11)
[2017-01-25 16:35] VITALS: BP 120/77
[2017-01-25 20:00] VITALS: BP 129/66
[2017-01-25 22:00] VITALS: BP 129/66
[2017-01-25] MEDS ORDERED: methylPREDNISolone SOD SUCC 40 MG/ML VL IV SCH (22:00)
[2017-01-25] MEDS: ATORVASTATIN 20 MG TAB PO SCH (22:11)
[2017-01-25 23:00] VITALS: BP 126/73
[2017-01-26] MEDS: IPRATROPIUM BROM 0.5 MG/2.5ML INH SOL NEB SCH ×5 (00:50→23:26)
[2017-01-26] MEDS: ALBUTEROL SULF 2.5 MG/0.5ML(0.5%) NEB SOLN NEB SCH ×5 (00:50→23:26)
[2017-01-26 05:00] VITALS: BP 125/92
[2017-01-26] MEDS: SODIUM CHLOR 0.9% PF (SALINE LOCK) 10ML VIAL IV SCH ×3 (06:12→21:49)
[2017-01-26] MEDS: ACCU-CHEK COMFORT CURVE STRIP VI SCH ×4 (06:12→17:37)
[2017-01-26 06:30] LABS: Albumin 3.1 g/dL (3.4-5.0); BUN/Creatinine Ratio 20.3; Bilirubin, Total 1.1 mg/dL (0.2-1.0); Calcium 8.8 mg/dL (8.5-10.1); Potassium 4.1 mmol/L (3.5-5.1); Total Protein 7.1 g/dL (6.4-8.2)
[2017-01-26 06:40] LABS: B-Type Natriuretic Peptide 498.15 pg/mL (0-100); Temperature: 21.4 C (20.0-25.0)
[2017-01-26 09:00] VITALS: BP 132/80
[2017-01-26] MEDS: FUROSEMIDE 40 MG/4 ML VIAL IV SCH (09:48)
[2017-01-26] MEDS: ASPirin 81 mg TAB PO SCH (09:48)
[2017-01-26] MEDS: APIXABAN 5 MG TAB PO SCH ×2 (09:48→21:49)
[2017-01-26] MEDS: CARVEDILOL 12.5 MG TAB PO SCH ×2 (09:49→21:49)
[2017-01-26] MEDS: LISINOPRIL 10 MG TAB PO SCH (09:49)
[2017-01-26] MEDS: POTASSIUM CHL 20 Meq TABLET PO SCH (12:10)
[2017-01-26 13:00] VITALS: BP 142/107
[2017-01-26] MEDS: ALBUMIN 25% 100 ML IV SCH ×2 (14:08→21:48)
[2017-01-26 17:00] VITALS: BP 125/69
[2017-01-26] MEDS: SPIRONOLACTONE 25 MG TAB PO SCH (17:29)
[2017-01-26 20:00] VITALS: BP 153/75
[2017-01-26] MEDS: ATORVASTATIN 20 MG TAB PO SCH (21:48)
[2017-01-26 22:00] VITALS: BP 153/75
[2017-01-27] MEDS: ACCU-CHEK COMFORT CURVE STRIP VI SCH ×2 (00:27→05:51)
[2017-01-27 05:00] VITALS: BP 115/91
[2017-01-27] MEDS: ALBUMIN 25% 100 ML IV SCH (05:51)
[2017-01-27] MEDS: SPIRONOLACTONE 25 MG TAB PO SCH (05:51)
[2017-01-27] MEDS: SODIUM CHLOR 0.9% PF (SALINE LOCK) 10ML VIAL IV SCH (05:51)
[2017-01-27] MEDS: ALBUTEROL SULF 2.5 MG/0.5ML(0.5%) NEB SOLN NEB SCH ×2 (06:00→12:07)
[2017-01-27] MEDS: IPRATROPIUM BROM 0.5 MG/2.5ML INH SOL NEB SCH ×2 (06:00→12:07)
[2017-01-27 06:29] LABS: Potassium 3.8 mmol/L (3.5-5.1)
[2017-01-27 06:35] LABS: BUN/Creatinine Ratio 23.7; Calcium 9.1 mg/dL (8.5-10.1)
[2017-01-27 07:22] VITALS: BP 117/85
[2017-01-27] MEDS: FUROSEMIDE 40 MG/4 ML VIAL IV SCH (09:39)
[2017-01-27] MEDS: ASPirin 81 mg TAB PO SCH (09:39)
[2017-01-27] MEDS: APIXABAN 5 MG TAB PO SCH (09:39)
[2017-01-27] MEDS: CARVEDILOL 12.5 MG TAB PO SCH (09:40)
[2017-01-27] MEDS: POTASSIUM CHL 20 Meq TABLET PO SCH (09:40)
[2017-01-27] MEDS: LISINOPRIL 10 MG TAB PO SCH (09:40)
[2017-01-27] MEDS ORDERED: SPIR25TA88 PO (10:25)
[2017-01-27] MEDS ORDERED: RIVA20TA PO (10:36)
[2017-01-27] MEDS ORDERED: ATOR20TA50 PO (10:36)
[2017-01-27 11:57] VITALS: BP 133/86
[2017-01-27 12:05] VITALS: BP 117/85
== END 2017-01-27 12:20 | disposition home or self-care (01) | DRG 194 ==
LOC: EDBD 20:52 → ER 20:58 → TELE 20:59 → TELE-CENTR 01-25 11:02
PROVIDERS: ADMIT Internal Medicine; ATTEND Internal Medicine
DX: I50.43 Acute on chronic combined systolic (congestive) and diastolic (congestive) heart failure (principal); K74.60 Unspecified cirrhosis of liver; E44.0 Moderate protein-calorie malnutrition; I42.9 Cardiomyopathy, unspecified; J44.9 Chronic obstructive pulmonary disease, unspecified; I11.0 Hypertensive heart disease with heart failure; E78.5 Hyperlipidemia, unspecified; Z53.29 Procedure and treatment not carried out because of patient's decision for other reasons; F12.90 Cannabis use, unspecified, uncomplicated; Z68.37 Body mass index [BMI] 37.0-37.9, adult; Z59.0 Homelessness; Z82.5 Family history of asthma and other chronic lower respiratory diseases; Z86.711 Personal history of pulmonary embolism; Z91.14 Patient's other noncompliance with medication regimen; Z87.891 Personal history of nicotine dependence
CPT/HCPCS: 36415; 36600; 71010; 76705; 80048; 80053; 80061; 81001; 82140; 82550; 82805; 82962; 83036; 83605; 83735; 83880; 84484; 85025; 85610; 85730; 87040; 93005; 94640; 96374; 96375; 96376; G0434; J3490

== ENCOUNTER 2017-02-11 21:56 | Emergency (ER) | payer MEDICAID ==
[~2017-02-11] VITALS: Ht 175.3 cm; Wt 113.4 kg
[~2017-02-11 21:56] MED LIST changes: -APIX5TAB OR; -ASPI81CH43 PO; +ATOR20TA50 PO; +DOCU100C8 PO; -MET25T PO; +MET50T PO; +RIVA20TA PO; +SPIR25TA88 PO
[2017-02-11 22:47] LABS: Basophils # (auto) 0 uL; Basophils % (auto) 0.3 % (0.0-2.0); Eosinophils # (auto) 0.2 uL; Eosinophils % (auto) 3.9 % (0.0-7.0); Hematocrit 38.1 % (41.0-53.0); Hemoglobin 12.1 g/dL (13.5-17.5); Lymphocytes # (auto) 0.7 uL; Lymphocytes % (auto) 13.1 % (10.0-50.0); Mean Corpuscular Hemoglobin 29.3 pg (28.0-32.0); Mean Corpuscular Hgb Conc. 31.8 g/dL (32.0-36.0); Mean Corpuscular Volume 92.2 fL (80.0-100.0); Mean Platelet Volume 7.4 fL (7.4-10.4); Monocytes # (auto) 0.6 uL; Monocytes % (auto) 9.7 % (0.0-12.0); Neutrophils # (auto) 4.2 uL; Platelet Count (auto) 337 10^3/uL (140-450); Red Cell Distribution Width 16.4 % (11.6-16.0); White Blood Cell 5.7 10^3/uL (4.4-10.8)
[2017-02-11 23:08] LABS: Albumin 3.5 g/dL (3.4-5.0); Calcium 8.6 mg/dL (8.5-10.1); Potassium 3.8 mmol/L (3.5-5.1)
[2017-02-11 23:10] LABS: BUN/Creatinine Ratio 16.8
[2017-02-11 23:12] LABS: Bilirubin, Total 1.4 mg/dL (0.2-1.0); Total Protein 6.9 g/dL (6.4-8.2)
[2017-02-11 23:41] LABS: B-Type Natriuretic Peptide 553.65 pg/mL (0-100); Temperature: 21.7 C (20.0-25.0)
[2017-02-12] MEDS ORDERED: cloNIDine HCL 0.1 MG TAB PO ONE
[2017-02-12 00:10] LABS: Urine Bilirubin Negative (Negative); Urine Blood Negative /uL (Negative); Urine Color Yellow (Yellow); Urine Glucose Normal (Normal); Urine Ketone Negative (Negative); Urine Mucus FEW (None Seen); Urine Nitrite Negative (Negative); Urine RBC 1 /hpf (0 - 3); Urine Squamous Epithelial Cell FEW /hpf (<5); Urine Urobilinogen >12.0 mg/dL (Negative)
[2017-02-12 01:24] VITALS: BP 179/101
== END 2017-02-12 01:42 | disposition home or self-care (01) ==
LOC: EDBD 21:56 → ER 22:03
DX: I11.0 Hypertensive heart disease with heart failure (principal); I50.9 Heart failure, unspecified; N50.89 Other specified disorders of the male genital organs; K70.31 Alcoholic cirrhosis of liver with ascites; Z91.14 Patient's other noncompliance with medication regimen; F12.90 Cannabis use, unspecified, uncomplicated; Z59.0 Homelessness; J44.9 Chronic obstructive pulmonary disease, unspecified; J45.909 Unspecified asthma, uncomplicated; Z86.711 Personal history of pulmonary embolism
CPT/HCPCS: 36415; 36600; 70450; 71020; 80053; 80307; 81001; 82140; 82805; 83880; 84484; 85025; 93005